=== PATIENT | female | born 1975 | race Caucasian/White ===

== ENCOUNTER 2021-08-22 19:15 | Emergency (ER) | payer BC, SELFPAY ==
[2021-08-22 19:20] VITALS: BP 184/95; PULSE 106; RESP 16; TEMP 37.2; O2SAT 100
--- NOTE | 2021-08-22 19:24 | ED.WOUNDLAC ---
HPI - Wound/Laceration General Chief Complaint: Wound/Laceration Stated Complaint: right hand lac Time Seen by Provider: 08/22/21 19:24 Source: patient and RN notes reviewed History of Present Illness HPI narrative: Patient is a 46-year-old female presents the urgent care with complaints of a laceration to the right palm. 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 Patient is up-to-date on her tetanus shot. States that she did wash out the wound prior to her arrival. No other acute complaints or injuries. No acute distress noted. Patient aware of the plan of care. Some parts of this dictation were generated by voice recognition software and may contain typographical and/or grammatical inaccuracies. Related Data Home Medications Medication Instructions Recorded Confirmed hydrochlorothiazide 12.5 mg PO DAILY 08/22/21 08/22/21 metoprolol tartrate 25 mg PO BID 08/22/21 08/22/21 Allergies Allergy/AdvReac Type Severity Reaction Status Date / Time No Known Allergies Allergy Verified 08/22/21 19:25 Review of Systems Review of Systems: CONSTITUTIONAL: Denies fever, chills, or sweats. EYES: Denies visual changes, redness, or discharge. ENT: Denies rhinorrhea, congestion, sore throat, or otalgia. CARDIOVASCULAR: Denies chest pain, palpitations, or edema. RESPIRATORY: Denies cough or dyspnea. GASTROINTESTINAL: Denies abdominal pain, nausea, vomiting, or diarrhea. GENITOURINARY: Denies dysuria or hematuria. SKIN: Reports of a laceration to the right palm. MUSCULOSKELETAL: Denies back pain, joint pain, or myalgia. NEUROLOGIC: Denies headache, numbness, or weakness. All other systems reviewed are negative, except as documented in HPI. PMFSH Comments At the time of my signature, I reviewed and agree with the nursing past medical, surgical, social, and family history. There is no relevant family history pertinent to the patient complaint. Exam Narrative: GENERAL: This is a well-nourished, well-developed patient, in no apparent distress. HEAD: normocephalic, atraumatic. EYES: PERRL. Sclera clear/white. Vision is grossly intact. EARS: External ears normal NOSE: External nose normal with no obvious nasal discharge, nares without redness, no rhinorrhea. THROAT: Mucous membranes mois NECK: Neck supple SKIN: 0.5 cm linear puncture consistent with a paper cut to the right palm. NEURO: awake, alert, and oriented to person, place and time. There were no obvious focal neurologic abnormalities. EXTREMITIES: No clubbing, cyanosis, or edema. Range of motion right upper extremity within normal limits with positive strong right radial pulse and capillary refill less than 2 seconds. Course Course Level of Care: Express Care Visit Vital Signs Vital signs: Vital Signs Temperature 99.0 F 08/22/21 19:20 Pulse Rate 106 H 08/22/21 19:20 Respiratory Rate 16 08/22/21 19:20 Blood Pressure 184/95 H 08/22/21 19:20 Pulse Oximetry 100 08/22/21 19:20 Temperature 99.0 F 08/22/21 19:20 Pulse Rate 106 H 08/22/21 19:20 Respiratory Rate 16 08/22/21 19:20 Blood Pressure 184/95 H 08/22/21 19:20 Pulse Oximetry 100 08/22/21 19:20 Reviewed-patient is informed that they may have pre-hypertension or hypertension based on a blood pressure reading in the department. I recommend the patient call the primary care provider listed on their discharge instructions or a physician of their choice this week to arrange follow-up for further evaluation of possible pre-hypertension or hypertension. Procedures Laceration Laceration 1: Site: hand Side (If applicable): right Size (cm): 0.5 Description: linear Depth: simple, single layer Pre-repair: irrigated ====== Skin Level ====== Skin layer closed with: dermabond ====== Subcutaneous Layer ====== ====== Muscle Layer ====== ====== Tendon Layer ====== Dressi
== END 2021-08-22 19:43 | disposition home or self-care (01) ==
PROVIDERS: Emergency Provider Nurse Practitioner Family; PCP Internal Medicine Geriatric Medicine
DX: S61.411A Laceration without foreign body of right hand, initial encounter (principal); W26.8XXA Contact with other sharp object(s), not elsewhere classified, initial encounter; I10 Essential (primary) hypertension
CPT/HCPCS: 12001; 99212; G0463

== ENCOUNTER 2022-09-17 15:49 | Emergency (ER) | payer BC, SELFPAY ==
[2022-09-17 15:56] VITALS: BP 181/106; PULSE 114; RESP 16; TEMP 37; O2SAT 98
--- NOTE | 2022-09-17 16:07 | ED.LOWEXIN ---
HPI - Extremity Injury (Lower) General Chief Complaint: Extremity Injury, Lower Stated Complaint: pain in left hip/leg History of Present Illness HPI Narrative: Patient presents for evaluation of chronic left lower back pain and left hip pain. Patient has been evaluated by her primary care provider multiple times and is on meloxicam, muscle relaxer and [place] for pain at this time. Patient states she has taken all of her medications as prescribed and just finished her prednisone last dose was today. Patient denies any new injury denies any numbness or tingling. Patient is here seeking pain control. Discussed with patient that we are unable to give her any Toradol injection at this time due to her current like taking the meloxicam and she is currently on muscle relaxers. Explained limited resources at this [facility] and advised patient to follow-up with her primary care provider as needed. Related Data Home Medications Medication Instructions Recorded Confirmed hydrochlorothiazide 12.5 mg tablet 12.5 mg PO DAILY 08/22/21 08/22/21 metoprolol tartrate 25 mg tablet 25 mg PO BID 08/22/21 08/22/21 cyclobenzaprine 10 mg tablet mg 09/17/22 gabapentin 300 mg capsule mg 09/17/22 hydrocodone 5 mg-acetaminophen 325 tablet 09/17/22 mg tablet meloxicam 15 mg tablet mg 09/17/22 Allergies Allergy/AdvReac Type Severity Reaction Status Date / Time No Known Allergies Allergy Verified 08/22/21 19:25 Review of Systems Review of Systems: CONSTITUTIONAL: Denies fever, chills, or sweats. EYES: Denies visual changes, redness, or discharge. ENT: Denies rhinorrhea, congestion, sore throat, or otalgia. CARDIOVASCULAR: Denies chest pain, palpitations, or edema. RESPIRATORY: Denies cough or dyspnea. GASTROINTESTINAL: Denies abdominal pain, nausea, vomiting, or diarrhea. GENITOURINARY: Denies dysuria or hematuria. SKIN: Denies rash or itching. MUSCULOSKELETAL: Denies back pain, joint pain, or myalgia. NEUROLOGIC: Denies headache, numbness, or weakness. PSYCHIATRIC: Denies anxiety or depression. PMFSH Comments At time of signature, agree with nursing past medical, surgical, social and family history. There is no relevant family history pertinent to the presenting complaint Exam Narrative: GENERAL: Well-appearing, well-nourished, and in no acute distress. HEAD: Normocephalic, atraumatic. EYES: PERRLA and EOMI. ENT: Nares clear, no rhinorrhea or epistaxis. Mucous membranes moist. NECK: Supple. CHEST: Clear to auscultation. No respiratory distress. HEART: Regular rate and rhythm. No murmur heard. Normal peripheral pulses. ABDOMEN: Soft, nontender, nondistended, normal active bowel sounds. EXTREMITIES: Normal range of motion. No edema. SPINE MIDLINE. NO CURVATURE APPARENT. NO NO VERTEBRAL POINT SPECIFIC TENDERNESS. NO DEFORMITY. NO STEP-OFFS. NORMAL LE STRENGTH BILATERALLY. NORMAL LE SENSATION BILATERALLY. ABLE TO WALK ON TOES AND HEELS WITH NORMAL DORSIFLEXION AND PLANTAR FLEXION STRENGTH. NO WEAKNESS OBSERVED WITH GAIT. left PARASPINAL MUSCLE TENDERNESS. left SI JOINT TENDERNESS. FLEXION AND EXTENSION ROM NORMAL, ONLY SLIGHT LIMITATION. SKIN: Warm, dry, no rash. NEURO: No focal deficits. Alert and oriented x3. [place] Coma Scale Eye Opening: Spontaneous 4 Williams Coma Scale Motor: Obeys Commands 6 Williams Coma Scale Verbal: Oriented 5 [place] Coma Scale Total 15 Course Course Level of Care: Express Care Visit Vital Signs Vital signs: Vital Signs Temperature 37.0 C 09/17/22 15:56 Pulse Rate 114 H 09/17/22 15:56 Respiratory Rate 16 09/17/22 15:56 Blood Pressure 181/106 H 09/17/22 15:56 Pulse Oximetry 98 09/17/22 15:56 Oxygen Delivery Room Air 09/17/22 15:56 Temperature 37.0 C 09/17/22 15:56 Pulse Rate 114 H 09/17/22 15:56 Respiratory Rate 16 09/17/22 15:56 Blood Pressure 181/106 H 09/17/22 15:56 Pulse Oximetry 98 09/17/22 15:56 Oxygen Delivery Room Air 09/17/22 15:56 Patient has b
== END 2022-09-17 16:09 | disposition home or self-care (01) ==
LOC: EXPBETH 15:53
PROVIDERS: Emergency Provider Nurse Practitioner Family; PCP Internal Medicine Geriatric Medicine
DX: G89.29 Other chronic pain (principal); M54.50 Low back pain, unspecified; I10 Essential (primary) hypertension
CPT/HCPCS: 99211; G0463